=== PATIENT | female | born 2000 | race African-American/Black ===

== ENCOUNTER 2021-07-08 00:04 | Inpatient (IN) ==
[2021-07-08] MEDS ORDERED: BUTORPHANOL 1 MG/ML VIAL IV PRN (00:56)
[2021-07-08] MEDS ORDERED: ONDANSETRON 4 MG/2 ML VIAL IV PRN ×2 (00:56→15:36)
[2021-07-08] MEDS ORDERED: BUTORPHANOL 2 MG/ML VIAL IV PRN (00:56)
[2021-07-08] MEDS ORDERED: MEPERIDINE 50 MG/1 ML VIAL IV PRN (00:56)
[2021-07-08 01:09] LABS: Bacteria,Urine Occasional /HPF (Few); Bilirubin,Urine Negative (Negative); Blood, Urine Negative (Negative); Glucose,Urine (UA) Negative (Negative); Ketones,Urine Negative (Negative); Mucus,Urine Occasional /LPF (Occasional); Nitrite,Urine Negative (Negative); Protein,Urine Negative; RBC,Urine 3 /HPF (0-4); Squamous Epithelial Cell,Urine Few /HPF (0-10); Urine Appearance Slightly Hazy (Clear); Urine Color Yellow (Yellow); Urine Specific Gravity 1.012 (1.001-1.035); Urine Urobilinogen < 2.0 EU/DL (0.2-1.0)
[2021-07-08 01:14] LABS: Basophils % 0.3 % (0.0-0.8); Eosinophils # 0.1 10*3/uL (0.0-0.87); Eosinophils % 0.7 % (0.00-10.9); Hematocrit 36.9 VOL% (35.7-47.0); Hemoglobin 12.4 GM/DL (12.0-16.0); Immature Granulocytes % 1.2 %; Immature Granulocytes Absolute 0.13 #; Lymphocytes # 2.8 10*3/uL (1.4-4.0); Lymphocytes % 26.3 % (21.3-54.2); Mean Corpuscular HGB Conc 33.6 GM/DL (32-36); Mean Corpuscular Volume 92.5 FL (87-102); Mean Platelet Volume 10.8 FL (9.6-12.0); Monocytes % 6.7 % (1.7-12.7); Neutrophils % 64.8 % (38.7-73.9); Platelet Count 187 T/CUMM (130-400); Red Blood Count 3.99 MC/CUMM (3.8-5.5); Red Cell Distribution Width 13.5 % (9.3-17.3); White Blood Count 10.7 T/CUMM (4-12)
[2021-07-08] MEDS ORDERED: AMPICILLIN INJ 2,000 MG in SODIUM CHLORIDE 0.9% 100 ML IV ONE (01:24)
[2021-07-08 01:39] LABS: Bilirubin,Total 0.8 MG/DL (0.20-1.00); Calcium 9.4 MG/DL (8.5-10.1); Osmolality,Calculated 270.8 MOS/KG (273-304); Potassium 3.9 MMOL/L (3.5-5.1); Total Protein 6.9 G/DL (6.4-8.2)
[2021-07-08] MEDS: LACTATED RINGERS 1,000 ML IV SCH ×2 (01:55→08:55)
[2021-07-08] MEDS: TERBUTALINE 1 MG/1 ML VIAL SUBCUT PRN ×2 (05:59→12:46)
[2021-07-08] MEDS: AMPICILLIN INJ 1,000 MG in SODIUM CHLORIDE 0.9% 100 ML IV SCH ×3 (06:14→13:29)
[2021-07-08 06:38] LABS: Rubella Antibody IgG Result Reactive (NonReactive)
[2021-07-08] MEDS ORDERED: CITRIC ACID/SODIUM CITRATE 30 ML UDCUP PO ONE (09:12)
[2021-07-08] MEDS ORDERED: FAMOTIDINE 20 MG/2 ML VIAL IV ONE (09:12)
[2021-07-08] MEDS ORDERED: ONDANSETRON 4 MG/2 ML VIAL IV ONE (09:13)
[2021-07-08] MEDS ORDERED: diphenhydrAMINE 50 MG/1 ML VIAL IV PRN (09:13)
[2021-07-08] MEDS ORDERED: LACTATED RINGERS 250 ML IV PRN (09:13)
[2021-07-08] MEDS ORDERED: NALOXONE 0.4 MG/ML VIAL IV PRN (09:13)
[2021-07-08] MEDS ORDERED: ePHEDrine 50 MG/ML VIAL IV PRN (09:13)
[2021-07-08] MEDS ORDERED: fentaNYL 2 MCG/ROPIV 0.2% EPID 100 ML EPIDURAL SCH (09:30)
[2021-07-08] MEDS ORDERED: OXYTOCIN/D5LR 20 UNIT/1,000 ML PREMIX IV SCH (10:30)
[2021-07-08] MEDS ORDERED: OXYTOCIN/LR 20 UNIT/1,000 ML BAG IV ONE ×2 (10:40→15:36)
[2021-07-08] MEDS ORDERED: OXYTOCIN/LR 20 UNIT/1,000 ML BAG IV SCH (11:00)
[2021-07-08] MEDS ORDERED: TERBUTALINE 1 MG/1 ML VIAL ONE (12:43)
[2021-07-08] MEDS ORDERED: OXYTOCIN/LR 30 UNIT/1,000 ML BAG IV ONE (14:16)
[2021-07-08] MEDS ORDERED: OXYTOCIN 10 UNIT/ML VIAL IM ONE (14:16)
[2021-07-08] MEDS ORDERED: CLINDAMYCIN INJ 900 MG/50 ML PREMIX IV ONE (14:20)
[2021-07-08] MEDS ORDERED: LIDOCAINE MPF 2% /EPI 20 ML VIAL ONE (14:45)
[2021-07-08] MEDS ORDERED: miSOPROStoL 200 MCG TABLET ONE (14:46)
[2021-07-08] MEDS ORDERED: METHYLERGONOVINE 0.2 MG/1 ML AMP ONE (14:47)
[2021-07-08] MEDS ORDERED: CARBOPROST TROMETHAMINE 250 MCG/ML AMP IM ONE (14:47)
[2021-07-08] MEDS ORDERED: ONDANSETRON 4 MG/2 ML VIAL ONE (15:07)
[2021-07-08] MEDS ORDERED: DEXAMETHASONE 4 MG/1 ML VIAL ONE (15:07)
[2021-07-08] MEDS ORDERED: PHENYLEPHRINE 1 MG/10 ML SYRINGE IV ONE (15:07)
[2021-07-08] MEDS ORDERED: KETOROLAC 30 MG/1 ML VIAL ONE (15:12)
[2021-07-08] MEDS ORDERED: ACETAMINOPHEN INJ 1,000 MG/100 ML VIAL IV ONE (15:19)
[2021-07-08] MEDS ORDERED: RHO(D) IMMUNE GLOBULIN 300 MCG SYRINGE IM ONE (15:36)
[2021-07-08] MEDS ORDERED: ACETAMINOPHEN 325 MG TABLET PO PRN (15:36)
[2021-07-08] MEDS ORDERED: LACTATED RINGERS 1,000 ML IV SCH (16:00)
[2021-07-08 16:29] LABS: Cord Arterial Blood HCO3 18.7 MMOL/L
[2021-07-08 16:33] LABS: Cord Venous Blood HCO3 20.8 MMOL/L; Cord Venous Blood PCO2 58.3 MMHG; Cord Venous Blood PO2 < 17
[2021-07-08] MEDS ORDERED: ACETAMINOPHEN 500 MG TABLET PO SCH (19:15)
[2021-07-08] MEDS: DOCUSATE SODIUM 100 MG CAPSULE PO SCH (21:52)
[2021-07-08] MEDS ORDERED: KETOROLAC 30 MG/1 ML VIAL IV SCH (22:15)
[2021-07-09] MEDS: ACETAMINOPHEN 500 MG TABLET PO SCH ×2 (00:42→06:25)
[2021-07-09] MEDS: KETOROLAC 30 MG/1 ML VIAL IV SCH ×3 (00:47→11:34)
[2021-07-09] MEDS: CLINDAMYCIN INJ 900 MG/50 ML PREMIX IV SCH ×2 (04:12→10:03)
[2021-07-09 05:37] LABS: Basophils % 0.1 % (0.0-0.8); Hematocrit 32.5 VOL% (35.7-47.0); Immature Granulocytes % 1.2 %; Immature Granulocytes Absolute 0.19 #; Lymphocytes # 1.5 10*3/uL (1.4-4.0); Lymphocytes % 9.8 % (21.3-54.2); Mean Corpuscular HGB Conc 33.8 GM/DL (32-36); Mean Corpuscular Volume 91.8 FL (87-102); Mean Platelet Volume 11.1 FL (9.6-12.0); Monocytes % 6.6 % (1.7-12.7); Neutrophils % 82.3 % (38.7-73.9); Platelet Count 182 T/CUMM (130-400); Red Blood Count 3.54 MC/CUMM (3.8-5.5); Red Cell Distribution Width 13.4 % (9.3-17.3); White Blood Count 15.7 T/CUMM (4-12)
[2021-07-09] MEDS: MULTIVITAMIN (PRENATAL) TABLET PO SCH (09:23)
[2021-07-09] MEDS: METOCLOPRAMIDE 10 MG TABLET PO SCH ×2 (09:23→17:43)
[2021-07-09] MEDS: DOCUSATE SODIUM 100 MG CAPSULE PO SCH ×2 (09:23→21:14)
[2021-07-09] MEDS: SIMETHICONE CHEW 80 MG TABLET PO PRN (09:24)
[2021-07-09] MEDS: IBUPROFEN 800 MG TABLET PO PRN (19:00)
[2021-07-09] MEDS: MAGNESIUM HYDROXIDE SUSP 30 ML UDCUP PO PRN (21:14)
[2021-07-10] MEDS: METOCLOPRAMIDE 10 MG TABLET PO SCH ×2 (01:00→08:39)
[2021-07-10] MEDS: IBUPROFEN 800 MG TABLET PO PRN (04:11)
[2021-07-10 08:17] VITALS: BP 115/66
[2021-07-10] MEDS: MAGNESIUM HYDROXIDE SUSP 30 ML UDCUP PO PRN (08:38)
[2021-07-10] MEDS: DOCUSATE SODIUM 100 MG CAPSULE PO SCH (08:39)
[2021-07-10] MEDS: MULTIVITAMIN (PRENATAL) TABLET PO SCH (08:39)
[2021-07-10] MEDS: SIMETHICONE CHEW 80 MG TABLET PO PRN (08:39)
[2021-07-10] MEDS ORDERED: DIPH/TET/ACEL PERT BOOSTER VACCINE 0.5 ML VIAL IM ONE (10:43)
== END 2021-07-10 13:55 | disposition home or self-care (01) | DRG 788 ==
LOC: N.LDOUT 00:04 → N.LD 00:10 → N.OB 21:05
PROVIDERS: ADMIT Obstetrics & Gynecology; ATTEND Obstetrics & Gynecology
PROC: LDCSECT (ICD-10-PCS; 2021-07-08 13:55)